=== PATIENT | male | born 1950 | race American Indian/Alaskan Native ===

== ENCOUNTER 2016-09-13 16:57 | Emergency (ER) | payer MEDICARE ==
[2016-09-13 17:04] VITALS: RESP 18; TEMP 98
[2016-09-13] MEDS ORDERED: Sodium Chloride 0.9% 1,000 ML IV STA (17:47)
--- NOTE | 2016-09-13 18:16 | ED PDOC ---
HPI: General Adult Time Seen by Provider: 09/13/16 17:24 Chief Complaint (Nursing): Medical Clearance Chief Complaint (Provider): Dehydration History Per: Patient, Other (coworker) History/Exam Limitations: no limitations Onset/Duration Of Symptoms: Mins (just prior to arrival) Current Symptoms Are (Timing): Better Severity: Moderate Additional Complaint(s): 66 year old male with a pertinent medical history of diabetes and prostate cancer (in remission) presents to the ED accompanied by his coworker with complaints of possible dehydration that occurred just prior to arrival. [place] [facility] [place] 90 degree [place] drinking anything. As he was coming [place] and [place] of [place] [facility] [place], he felt hot and lightheaded and almost passed out. He denies having any loss of consciousness. He reports that he felt better upon arriving to the ED where there was air conditioning, and after drinking Gatorade. He denies having any chest pain, headaches, paresthesias, weakness, and shortness of breath. PMD: Dr. Villatoro (Non [facility] provider). Past Medical History Reviewed: Historical Data, Nursing Documentation, Vital Signs Vital Signs: Last Vital Signs Temp 98 F 09/13/16 17:02 Pulse 70 09/13/16 21:21 Resp 18 09/13/16 17:02 BP 143/87 09/13/16 21:21 Pulse Ox 99 09/14/16 03:17 - Medical History PMH: Diabetes Other PMH: prostate cancer (in remission) - Family History Family History: States: Unknown Family Hx - Social History Alcohol: None Drugs: Denies - Allergies Allergies/Adverse Reactions: Allergies Allergy/AdvReac Type Severity Reaction Status Date / Time No Known Allergies Allergy Verified 09/13/16 17:02 Review of Systems ROS Statement: Except As Marked, All Systems Reviewed And Found Negative Constitutional: Positive for: Weakness (almost passed out) Cardiovascular: Positive for: Light Headedness. Negative for: Chest Pain Respiratory: Negative for: Shortness of Breath Neurological: Negative for: Weakness, Numbness, Headache Physical Exam - Reviewed Nursing Documentation Reviewed: Yes Vital Signs Reviewed: Yes - Physical Exam Appears: Positive for: Well, Non-toxic, No Acute Distress Head Exam: Positive for: ATRAUMATIC, NORMOCEPHALIC Skin: Positive for: Normal Color, Warm, Dry Eye Exam: Positive for: Normal appearance ENT: Positive for: Normal ENT Inspection Neck: Positive for: Normal Cardiovascular/Chest: Positive for: Regular Rate, Rhythm Respiratory: Positive for: Normal Breath Sounds. Negative for: Respiratory Distress Extremity: Positive for: Normal ROM Neurologic/Psych: Positive for: Alert, Oriented (3x) - Laboratory Results Result Diagrams: 09/13/16 18:36 09/13/16 18:36 - ECG Interpretation Of ECG: NSR @ 80, no ST-T changes. O2 Sat by Pulse Oximetry: 99 (RA) Pulse Ox Interpretation: Normal Medical Decision Making Medical Decision Makin:24 Initial impression: 66 year old male with dehydration and heat exhaustion. Initial plan: * XRay chest 2 views * EKG * CMP * udip * CBC * IV NS 1,000ml IV 100mls/hr * accucheck * urinalysis * reevaluation Scribe Attestation: Documented by Brina Barrow, acting as a scribe for Jessica Hopper MD. Provider Scribe Attestation: All medical record entries made by the Scribe were at my direction and personally dictated by me. I have reviewed the chart and agree that the record accurately reflects my personal performance of the history, physical exam, medical decision making, and the department course for this patient. I have also personally directed, reviewed, and agree with the discharge instructions and disposition. Disposition - Clinical Impression Clinical Impression: Dehydration - Disposition Disposition Time: 19:00 Condition: STABLE Instructions: Dehydration (ED) Patient Signed Over To: Tee Robertson Handoff Comments: Pending labs and reevaluation.
[2016-09-13 18:41] LABS: BASO # 0.1 K/uL (0.0-0.2); BASO % 1.1 % (0.0-2.0); EOS # 0.1 K/uL (0.0-0.7); EOS % 1.6 % (0.0-4.0); HEMOGLOBIN 11.9 g/dL (12.0-18.0); LYMPH # 1.4 K/uL (1.0-4.3); LYMPH % 26.5 % (20.0-40.0); MEAN CELL VOLUME 89.3 fl (80.0-94.0); MEAN CORPUSCULAR HGB CONC 33.6 g/dL (33.0-37.0); MEAN PLATELET VOLUME 9.3 fl (7.2-11.7); MONO # 0.5 K/uL (0.0-0.8); MONO % 9.6 % (0.0-10.0); NEUT # 3.3 K/uL (1.8-7.0); NEUT % 61.2 % (50.0-75.0); NRBC % 0.1 % (0.0-0.0); RBC 3.97 Mil/uL (4.40-5.90); RED CELL DISTRIBUTION WIDTH 14.2 % (11.5-14.5); WHITE BLOOD COUNT 5.5 K/uL (4.8-10.8)
[2016-09-13 19:07] LABS: ALB/GLOB RATIO 1.2 (1.0-2.1); ALBUMIN 4.4 g/dL (3.5-5.0); ALT/SGPT 40 U/L (21-72); AST/SGOT 56 U/L (17-59); BLOOD UREA NITROGEN 13 mg/dl (9-20); CALCIUM 9.6 mg/dL (8.4-10.2); GFR AFRICAN-AMERICAN > 60; GFR NON-AFRICAN AMERICAN > 60
--- NOTE | 2016-09-13 19:22 | ED PDOC ---
- Laboratory Results Result Diagrams: 09/13/16 18:36 09/13/16 18:36 - ECG O2 Sat by Pulse Oximetry: 99 (RA) - Radiology X-Ray: Interpreted by Me, Viewed By Me X-Ray Interpretation: No Acute Disease Medical Decision Making Medical Decision Makin:00 Patient is signed out to me by Jessica Hopper MD pending labs, reevaluation, and final disposition. 21:05 Labs are reviewed, they show no clinically significant abnormalities. Chest XRay shows no acute disease. Patient reports that his symptoms have resolved. Patient is stable upon discharge. Scribe Attestation: Documented by Brina Barrow, acting as a scribe for Tee Robertson MD. Provider Scribe Attestation: All medical record entries made by the Scribe were at my direction and personally dictated by me. I have reviewed the chart and agree that the record accurately reflects my personal performance of the history, physical exam, medical decision making, and the department course for this patient. I have also personally directed, reviewed, and agree with the discharge instructions and disposition. Disposition Counseled Patient/Family Regarding: Studies Performed, Diagnosis - Clinical Impression Clinical Impression: Dehydration - POA Present On Arrival: None - Disposition Disposition: Routine/Home Disposition Time: 21:05 Condition: IMPROVED Instructions: Dehydration (ED)
[2016-09-13 19:58] LABS: URINE BILIRUBIN NEGATIVE (NEGATIVE); URINE CLARITY Clear (Clear); URINE COLOR YELLOW (YELLOW); URINE GLUCOSE (UA) 250 mg/dL (Normal)
[2016-09-13 19:59] LABS: URINE BLOOD NEGATIVE (NEGATIVE); URINE LEUKOCYTE ESTERASE NEGATIVE Leu/uL (Negative); URINE NITRATE NEGATIVE (NEGATIVE); URINE PROTEIN 30 mg/dL (NEGATIVE); URINE UROBILINOGEN 0.2 mg/dL (0.2-1.0)
[2016-09-13 20:08] LABS: SQUAMOUS EPITHIAL 3 /hpf (0-5); URINE BACTERIA FEW (<OCC)
[2016-09-13 21:22] VITALS: BP 143/87; PULSE 70
[2016-09-14 03:17] VITALS: O2SAT 99
--- NOTE | 2016-09-14 08:17 | CARD ---
APPROVED REPORT EKG Measurement Heart [id number] <Conclusion> Normal sinus rhythm Inferior infarct, age undetermined Abnormal ECG
--- NOTE | 2016-09-14 13:03 | RAD ---
HISTORY: Lightheadedness COMPARISON: No prior. TECHNIQUE: Chest PA and lateral FINDINGS: LUNGS: No active pulmonary disease. PLEURA: No significant pleural effusion identified. No pneumothorax apparent. CARDIOVASCULAR: Normal. OSSEOUS STRUCTURES: No significant abnormalities. VISUALIZED UPPER ABDOMEN: Normal. OTHER FINDINGS: None. IMPRESSION: No active disease.
== END 2016-09-13 21:10 | disposition home or self-care (01) ==
LOC: H.ER 16:57
DX: E86.0 Dehydration (principal); T67.5XXA Heat exhaustion, unspecified, initial encounter; Y99.0 Civilian activity done for income or pay; E11.9 Type 2 diabetes mellitus without complications; Z85.46 Personal history of malignant neoplasm of prostate
CPT/HCPCS: 71020; 80053; 81003; 82948; 85025; 93005; 96360; 99284; J7040